=== PATIENT | female | born 1960 | race Caucasian/White ===

== ENCOUNTER 2016-02-13 05:16 | Inpatient (IN) | payer BC ==
[~2016-02-13] VITALS: Ht 157.5 cm; Wt 103.3 kg
[~2016-02-13 05:16] MED LIST: ASPIR 8181 M1 PO; AUGMENTIN875 MG PO; COLO-40 MC; ENDOCET 5-3251 EACH PO; ESTRACE1 MG PO; HYDROCHLOROTHIA25 MG PO; K-DUR20 MEQ PO; LEVAQUIN500 MG PO; METOPROLOL SUCC50 MG PO; NORVASC2.5 MG PO; NORVASC5 MG PO; PERCOCET 5/31 TABLET PO; PHENERGAN25 MG PR; PLAVIX75 MG PO; ZOFRAN4 MG PO
[2016-02-13 05:57] VITALS: BP 127/64
[2016-02-13 13:51] VITALS: BP 112/48
[2016-02-13 15:59] VITALS: BP 131/67
[2016-02-13 16:00] VITALS: BP 131/67
[2016-02-13 20:00] VITALS: BP 114/59
[2016-02-14] VITALS (8 sets, daily range): BP systolic 117–133; BP diastolic 52–78
[2016-02-14 07:10] LABS: HEMATOCRIT 38.3 % (36.0-46.0); MCH 28.7 PG (29.0-34.0); MCHC 32.4 G/DL (30.0-36.0); MCV 88.7 FL (83-99); MEAN PLAT.VOLUME 10.7 uM^3 (9.5-12.4); PLATELET COUNT 264 K/uL (156-360); RBC DIS.WIDTH-CV 14.7 % (11.8-14.6); RBC DIS.WIDTH-SD 47.8 % (39-53); RED BLOOD COUNT 4.32 M/uL (3.80-5.20); WHITE BLOOD COUNT 9.6 K/uL (4.1-10.2)
[2016-02-14 07:42] LABS: ANION GAP 10 MEQ/L (2-14); CHLORIDE 105 MEQ/L (99-109); GFR ESTIMATE (CALCULATED) > 59 mL/min/; GLUCOSE 109 mg/dL (70-99); MAGNESIUM 1.4 mg/dl (1.3-2.7); POTASSIUM 4.1 MEQ/L (3.7-5.4); SAMPLE HEMOLYSIS CHECK 0; SAMPLE ICTERIC CHECK 0; SAMPLE LIPEMIA CHECK 0; SODIUM 137 MEQ/L (136-147); UREA NITROGEN (BUN) 6 mg/dL (9-23)
[2016-02-15 03:47] VITALS: BP 112/56
[2016-02-15 06:42] LABS: HEMATOCRIT 38.8 % (36.0-46.0); MCH 28.2 PG (29.0-34.0); MCHC 31.7 G/DL (30.0-36.0); MEAN PLAT.VOLUME 10.2 uM^3 (9.5-12.4); PLATELET COUNT 282 K/uL (156-360); RBC DIS.WIDTH-CV 14.6 % (11.8-14.6); RBC DIS.WIDTH-SD 47.4 % (39-53); RED BLOOD COUNT 4.36 M/uL (3.80-5.20); WHITE BLOOD COUNT 9.3 K/uL (4.1-10.2)
[2016-02-15 07:18] LABS: ANION GAP 8 MEQ/L (2-14); CHLORIDE 103 MEQ/L (99-109); GFR ESTIMATE (CALCULATED) > 59 mL/min/; GLUCOSE 103 mg/dL (70-99); POTASSIUM 3.7 MEQ/L (3.7-5.4); SAMPLE HEMOLYSIS CHECK 0; SAMPLE ICTERIC CHECK 0; SAMPLE LIPEMIA CHECK 0; SODIUM 135 MEQ/L (136-147); UREA NITROGEN (BUN) 5 mg/dL (9-23)
[2016-02-15 08:50] VITALS: BP 116/77
[2016-02-15 12:16] VITALS: BP 111/68
[2016-02-15 16:00] VITALS: BP 121/65
[2016-02-15 23:00] VITALS: BP 117/56
[2016-02-16 06:49] LABS: HEMATOCRIT 37.5 % (36.0-46.0); MCHC 32.5 G/DL (30.0-36.0); MCV 89.3 FL (83-99); MEAN PLAT.VOLUME 10.9 uM^3 (9.5-12.4); PLATELET COUNT 287 K/uL (156-360); RBC DIS.WIDTH-CV 14.5 % (11.8-14.6); RBC DIS.WIDTH-SD 47.2 % (39-53); WHITE BLOOD COUNT 7.4 K/uL (4.1-10.2)
[2016-02-16 07:12] LABS: ANION GAP 12 MEQ/L (2-14); CHLORIDE 102 MEQ/L (99-109); GFR ESTIMATE (CALCULATED) > 59 mL/min/; GLUCOSE 92 mg/dL (70-99); POTASSIUM 3.7 MEQ/L (3.7-5.4); SAMPLE HEMOLYSIS CHECK 0; SAMPLE ICTERIC CHECK 0; SAMPLE LIPEMIA CHECK 0; SODIUM 141 MEQ/L (136-147); UREA NITROGEN (BUN) 4 mg/dL (9-23)
[2016-02-16 07:23] VITALS: BP 125/57
[2016-02-16] MEDS ORDERED: PERCOCET 5/31 TABLET PO (10:01)
== END 2016-02-16 14:01 | disposition home or self-care (01) | DRG 330 ==
LOC: SDC 05:16 → 2EAST 09:45 → 2SOUTH 09:45 → SDC 11:16 → 2EAST 13:34
PROVIDERS: Physician Assistant; Surgery
DX: Z43.2 Encounter for attention to ileostomy (principal); E66.01 Morbid (severe) obesity due to excess calories; Z68.41 Body mass index [BMI] 40.0-44.9, adult; I11.0 Hypertensive heart disease with heart failure; I50.9 Heart failure, unspecified; I25.10 Atherosclerotic heart disease of native coronary artery without angina pectoris; K21.0 Gastro-esophageal reflux disease with esophagitis; I25.2 Old myocardial infarction; Z95.5 Presence of coronary angioplasty implant and graft; Z79.82 Long term (current) use of aspirin; Z79.02 Long term (current) use of antithrombotics/antiplatelets; K57.30 Diverticulosis of large intestine without perforation or abscess without bleeding; Z88.5 Allergy status to narcotic agent; Z91.041 Radiographic dye allergy status
CPT/HCPCS: 80048; 83735; 84100; 85027; J0330; J1335; J1885; J2250; J2270; J2405; J2710; J2765; J3010; J7050; S0028

== ENCOUNTER → 2016-09-27 | Outpatient (CLI) | payer BC ==
[~2016-09-27] VITALS: Ht 157.5 cm; Wt 102.1 kg
[~2016-09-27] MED LIST changes: +AMLODIPINE BES2.5 MG PO
== END | disposition home or self-care (01) ==
LOC: AMB 12:36
PROC: 0DBP8ZX Excision of Rectum, Via Natural or Artificial Opening Endoscopic, Diagnostic (ICD-10-PCS; principal; 2016-09-27)
DX: Z09 Encounter for follow-up examination after completed treatment for conditions other than malignant neoplasm (principal); K62.1 Rectal polyp; Z87.19 Personal history of other diseases of the digestive system; Z86.010 Personal history of colon polyps; K57.30 Diverticulosis of large intestine without perforation or abscess without bleeding; R15.0 Incomplete defecation; K64.8 Other hemorrhoids; E78.5 Hyperlipidemia, unspecified; I25.2 Old myocardial infarction; K58.9 Irritable bowel syndrome, unspecified; I10 Essential (primary) hypertension; I25.10 Atherosclerotic heart disease of native coronary artery without angina pectoris; Z95.5 Presence of coronary angioplasty implant and graft; Z79.82 Long term (current) use of aspirin; Z87.891 Personal history of nicotine dependence
CPT/HCPCS: 88305; J2250; J3010

== ENCOUNTER 2016-11-08 17:15 | Emergency (ER) | payer BC ==
[~2016-11-08] VITALS: Ht 157.5 cm; Wt 104.3 kg
[2016-11-08] MEDS ORDERED: NORCO 5/3251 TABLET PO (19:43)
[2016-11-08] MEDS ORDERED: ERYTHROMYC1 APPLICAT RIGHT EYE (19:43)
[2016-11-08 19:55] VITALS: BP 142/73
== END 2016-11-08 20:01 | disposition home or self-care (01) ==
LOC: EME 17:15
DX: S05.01XA Injury of conjunctiva and corneal abrasion without foreign body, right eye, initial encounter (principal); S05.02XA Injury of conjunctiva and corneal abrasion without foreign body, left eye, initial encounter; X58.XXXA Exposure to other specified factors, initial encounter; K21.9 Gastro-esophageal reflux disease without esophagitis; I25.2 Old myocardial infarction; Z93.2 Ileostomy status; Z87.891 Personal history of nicotine dependence; Z88.8 Allergy status to other drugs, medicaments and biological substances
CPT/HCPCS: 99281; 99284